=== PATIENT | male | born 1980 | race Hispanic/Latino ===

== ENCOUNTER 2019-12-17 01:06 | Emergency (ER) | payer SELFPAY ==
[2019-12-17] MEDS ORDERED: LIDOCAINE 1% MPF 30 ML VIAL ONE (01:24)
[2019-12-17 02:08] LABS: Absolute Lymphocytes (CBC) 1.8 K/uL (0.7-4.9); Basophils % 1.1 % (0-1.3); Hematocrit 42.1 % (39.6-49.0); Lymphocytes % 20.4 % (15.3-44.8); MPV 7.8 fL (7.6-11.3); RBC Red Blood Cell Count 4.85 M/uL (4.33-5.43)
[2019-12-17 02:21] LABS: Protime INR 0.9
[2019-12-17 02:30] LABS: ALT/SGPT 56 U/L (12-78); Albumin 3.7 g/dL (3.4-5.0); Alkaline Phosphatase 54 U/L (45-117); BUN Blood Urea Nitrogen 10 mg/dL (7-18); Bicarbonate 21 mmol/L (21-32); Bilirubin Direct < 0.1 mg/dL (0-0.2); Bilirubin Total 0.2 mg/dL (0.2-1.0); Glucose Level 85 mg/dL (74-106); Protein, Total 7.3 g/dL (6.4-8.2); Sodium Level 144 mmol/L (136-145)
[2019-12-17 02:32] LABS: AST/SGOT 57 U/L (15-37)
[2019-12-17 02:41] LABS: Barbiturates NEGATIVE (NEGATIVE); Benzodiazepines NEGATIVE (NEGATIVE); Cocaine NEGATIVE (NEGATIVE); METHAMPHETAM NEGATIVE (NEGATIVE); Methadone NEGATIVE (NEGATIVE); Opiates NEGATIVE (NEGATIVE); Phencyclidine NEGATIVE (NEGATIVE); THC Cannibis NEGATIVE (NEGATIVE)
[2019-12-17] MEDS ORDERED: DIPHENHYDRAMINE 50 MG/ML VIAL ONE (03:46)
[2019-12-17] MEDS ORDERED: QUETIAPINE 25 MG TAB ONE (04:44)
--- NOTE | 2019-12-17 07:22 | EDPHYS ---
Physician Documentation [facility] Name: Slava Guevara Age: 39 yrs Sex: Male : 1980 Arrival Date: 12/17/2019 Time: 01:16 Bed 2 Private MD: ED Physician Kermit Gann HPI: 12/16 06:20 This 39 yrs old Male presents to ER via EMS with complaints of Laceration To tw4 Arm. 06:20 The patient has a laceration related to: unknown occurred at home. The laceration(s) tw4 is(are) located on the right arm and left arm. Onset: The symptoms/episode began/occurred today. Pertinent positives: suicidal ideation, The patient has not experienced similar symptoms in the past. Historical: - Allergies: 01:30 No Known Allergies; jb4 - Home Meds: 01:30 None [Active]; jb4 - PMHx: 01:30 None; jb4 - PSHx: 01:30 None; jb4 - Immunization history:: Adult Immunizations unknown. - Social history:: Smoking status: unknown Patient uses alcohol, patient/guardian reports recent binge of alcohol consumption. ROS: 06:20 Constitutional: Negative for fever, chills, and weight loss, Eyes: Negative for injury, tw4 pain, redness, and discharge, Cardiovascular: Negative for chest pain, palpitations, and edema, Respiratory: Negative for shortness of breath, cough, wheezing, and pleuritic chest pain, Abdomen/GI: Negative for abdominal pain, nausea, vomiting, diarrhea, and constipation, MS/Extremity: Negative for injury and deformity. 06:20 Skin: Positive for laceration(s), Negative for abrasions, abscesses, avulsion, cellulitis. Exam: 20:11 Constitutional: This is a well developed, well nourished patient who is awake, alert, tw4 and in no acute distress. Head/Face: Normocephalic, atraumatic. Chest/axilla: Normal chest wall appearance and motion. Nontender with no deformity. No lesions are appreciated. Cardiovascular: Regular rate and rhythm with a normal S1 and S2. No gallops, murmurs, or rubs. Normal PMI, no JVD. No pulse deficits. Respiratory: Lungs have equal breath sounds bilaterally, clear to auscultation and percussion. No rales, rhonchi or wheezes noted. No increased work of breathing, no retractions or nasal flaring. Abdomen/GI: Soft, non-tender, with normal bowel sounds. No distension or tympany. No guarding or rebound. No evidence of tenderness throughout. Neuro: Awake and alert, GCS 15, oriented to person, place, time, and situation. Cranial nerves II-XII grossly intact. Motor strength 5/5 in all extremities. Sensory grossly intact. Cerebellar exam normal. Normal gait. Psych: Awake, alert, with orientation to person, place and time. Behavior, mood, and affect are within normal limits. 20:11 Musculoskeletal/extremity: Extremities: noted in the dorsal aspect of left forearm: laceration, noted in the right wrist: Vital Signs: 01:17 BP 121 / 76; Pulse 141; Resp 16; Temp 99.5; Pulse Ox 94% on R/A; jb4 04:38 BP 105 / 74; Pulse 81; Resp 16; Pulse Ox 97% on R/A; jb4 05:00 BP 95 / 70; Pulse 67; Resp 16; Pulse Ox 96% on R/A; jb4 06:00 BP 97 / 65; Pulse 79; Resp 16; Pulse Ox 96% on R/A; jb4 Laceration: 20:11 Wound Repair of 10.2cm ( 4in ) subcutaneous laceration to dorsal aspect of left tw4 forearm. Distal neuro/vascular/tendon intact. Anesthesia: Local anesthetic administered with 5 mls of 1% lidocaine. Wound prep: Simple cleansing. Skin closed with 8 1-0 Letha using staple gun. Dressed with Kerlix. Patient tolerated well. MDM: 01:19 Patient medically screened. tw4 07:09 ED course: Pt is alert oriented and appears clinically sober. Does not attest to SI at ps1 this time. Statements previous were associated with alcohol intoxication and unreliable. . 20:20 Differential diagnosis: superficial laceration, tendon injury, vascular injury. Data tw4 reviewed: vital signs, nurses notes. Data interpreted: Pulse oximetry: Interpretation: normal. Counseling: I had a detailed discussion with the patient and/or guardian regarding: the historical points, exam findings, and any diagnostic results supporting the discharge/admit diagnosis. 12/16 02:32 Order name: Basic Metabolic Panel; Complete Time: 02:54 EDMS 12/16 02:54 Interpretation: Normal except: CL 111; CA 8.4. 12/16 02:32 Order name: Liver (Hepatic) Function; Complete Time: 02:54 EDMS 12/16 02:54 Interpretation: Normal except: GLOB 3.6; A/G 1.0; AST 57. 12/16 02:32 Order name: Acetaminophen Level; Complete Time: 02:54 EDMS 12/16 02:54 Interpretation: Within normal limits: ACETA < 2.0. 12/16 02:32 Order name: Alcohol Serum/Plasma; Complete Time: 02:54 EDMS 12/16 02:55 Interpretation: Abnormal: ETOH 268. 12/16 02:32 Order name: Salicylates Level; Complete Time: 02:54 EDMS 12/16 02:55 Interpretation: Within normal limits: ALLEGRA < 1.7. 12/16 01:42 Order name: EKG; Complete Time: 02:32 12/16 01:42 Order name: EKG - Nurse/Tech; Complete Time: 01:54 4 12/16 01:42 Order name: IV Saline Lock; Complete Time: 01:54 4 12/16 01:42 Order name: Labs collected and sent; Complete Time: 01:54 4 12/16 01:42 Order name: Urine Dipstick-Ancillary (obtain specimen); Complete Time: 05:28 12/16 02:32 Order name: CBC with Automated Diff; Complete Time: 02:54 EDMS 12/16 02:55 Interpretation: Normal except: MCV 86.7; RDW 16.2. 12/16 02:32 Order name: Protime (+INR); Complete Time: 02:54 EDMS 12/16 02:55 Interpretation: Within normal limits: PT 10.6. 12/16 02:32 Order name: PTT, Activated Partial Thromb; Complete Time: 02:54 EDMS 12/16 02:32 Order name: Urine Drug Screen; Complete Time: 02:54 EDMS Administered Medications: 01:28 Drug: Lidocaine (1 %) 1 amp {Note: administered by provider .} Volume: 20 ml; Route: ea Infiltration; 03:37 Drug: Benadryl 25 mg Route: IVP; Site: right antecubital; jb4 04:00 Follow up: Response: No adverse reaction jb4 04:53 Drug: SEROquel 25 mg Route: PO; ea 05:27 Follow up: Response: No adverse reaction ea Disposition: 12/17/19 07:21 Discharged to Home. Impression: Alcohol abuse with intoxication, Bilateral forearm laceration. - Condition is Stable. - Discharge Instructions: Alcohol Intoxication, Laceration Care, Adult. - Medication Reconciliation Form, Thank You Letter, Antibiotic Education, Prescription Opioid Use form. - Follow up: Private Physician; When: As needed; Reason: Further diagnostic work-up, Recheck today's complaints, Continuance of care, Re-evaluation by your physician, coordinate substance abuse counseling. Follow up: Emergency Department; When: As needed; Reason: If symptoms return, Worsening of condition. - Problem is new. - Symptoms have improved. Signatures: Dispatcher [employer] EDMS Lynn Palma RN RN ss Bryson, James, RN RN jb4 Jadyn Tejada RN RN ea Singer, Phillip, MD MD ps1 Wadley, Terrence, MD MD tw4 Corrections: (The following items were deleted from the chart) 01:41 01:19 12/17/2019 01:19 Discharged to Home. Impression: Laceration of flexor muscle, tw4 fascia and tendon of other and unspecified finger at forearm level. Condition is Stable. Forms are Medication Reconciliation Form, Thank You Letter, Antibiotic Education, Prescription Opioid Use. Follow up: Private Physician; When: Upon discharge from the Emergency Department; Reason: Recheck today's complaints, Continuance of care, Re-evaluation by your physician. Problem is new. Symptoms have improved. tw4 02:48 02:32 CBC+H.LAB.BRZ ordered. EDMS EDMS 02:48 02:32 PROTIME (+INR)+COAG.LAB.BRZ ordered. EDMS EDMS 02:48 02:32 PTT, ACTIVATED+COAG.LAB.BRZ ordered. EDMS EDMS 02:48 02:32 SALICYLATE+C.LAB.BRZ ordered. EDMS EDMS 02:48 02:32 URINE DRUG SCREEN+CHEM UR.LAB.BRZ ordered. EDMS EDMS 02:49 02:32 ACETAMINOPHEN+C.LAB.BRZ ordered. EDMS EDMS 02:49 02:32 BASIC METABOLIC PANEL+C.LAB.BRZ ordered. EDMS EDMS 02:49 02:32 ETHANOL+C.LAB.BRZ ordered. EDMS EDMS 02:49 02:32 HEPATIC FUNCTION+C.LAB.BRZ ordered. EDCA EDMS 11:14 07:21 12/17/2019 07:21 Discharged to Home. Impression: Alcohol abuse with intoxication; ss Bilateral forearm laceration. Condition is Stable. Prescriptions for Ibuprofen 800 mg Oral Tablet - take 1 tablet by ORAL route every 12 hours As needed take with food; 20 tablet. and Forms are Medication Reconciliation Form, Thank You Letter, Antibiotic Education, Prescription Opioid Use. Follow up: Private Physician; When: As needed; Reason: Further diagnostic work-up, Recheck today's complaints, Continuance of care, Re-evaluation by your physician, coordinate substance abuse counseling. Follow up: Emergency Department; When: As needed; Reason: If symptoms return, Worsening of condition. Problem is new. Symptoms have improved. ps1
--- NOTE | 2019-12-17 07:22 | ER ---
Nurse's Notes [facility] Name: Slava Guevara Age: 39 yrs Sex: Male : 1980 Arrival Date: 12/17/2019 Time: 01:16 Bed 2 Private MD: Diagnosis: Alcohol abuse with intoxication;Bilateral forearm laceration Presentation: 12/16 01:17 Chief complaint: EMS states: Per the pt, he was cooking and accidently cut both of his jb4 forearms with a knife. He also has a laceration to his left upper arm. Coronavirus screen: Client denies travel out of the [place] in the last 14 days. At this time, the client does not indicate any symptoms associated with coronavirus-19. Ebola Screen: No symptoms or risks identified at this time. Complicating Factors: There are no complicating factors for this patient. Initial Sepsis Screen: Does the patient meet any 2 criteria? HR > 90 bpm. Yes Does the patient have a suspected source of infection? No. Patient's initial sepsis screen is negative. Risk Assessment: Do you want to hurt yourself or someone else? Patient reports no desire to harm self or others. Onset of symptoms was December 17, 2019. Transition of care: patient was not received from another setting of care. 01:17 Method Of Arrival: [facility] 01:17 Acuity: TESSA 2 jb4 Triage Assessment: 01:32 General: Appears in no apparent distress. Behavior is appropriate for age, Smells of ea alcohol. Pain: Complains of pain in dorsal aspect of left forearm. Injury Description: Laceration sustained to right wrist and dorsal aspect of left forearm is 2.6 to 7.5 cm long, was sustained 30-60 minutes ago. is bleeding a small amount. Historical: - Allergies: 01:30 No Known Allergies; jb4 - Home Meds: 01:30 None [Active]; jb4 - PMHx: 01:30 None; jb4 - PSHx: 01:30 None; jb4 - Immunization history:: Adult Immunizations unknown. - Social history:: Smoking status: unknown Patient uses alcohol, patient/guardian reports recent binge of alcohol consumption. Screenin:29 Abuse screen: Denies threats or abuse. Nutritional screening: No deficits noted. ea Tuberculosis screening: No symptoms or risk factors identified. Fall Risk None identified. Assessment: 01:17 General: Appears in no apparent distress. comfortable, Behavior is calm, cooperative, jb4 appropriate for age. Pain: Denies pain. Neuro: Level of Consciousness is awake, alert, obeys commands, Oriented to person, place, time, situation. Cardiovascular: Patient's skin is warm and dry. Respiratory: Airway is patent Respiratory effort is even, unlabored, Respiratory pattern is regular, symmetrical. GI: No signs and/or symptoms were reported involving the gastrointestinal system. : No signs and/or symptoms were reported regarding the genitourinary system. EENT: No signs and/or symptoms were reported regarding the EENT system. Derm: Skin is pink, warm \T\ dry. Musculoskeletal: Circulation, motion, and sensation intact. Range of motion: intact in all extremities. Injury Description: Laceration sustained to dorsal aspect of right forearm is clean, 7.6 to 20 cm long, not bleeding. 01:17 Injury Description: Laceration sustained to dorsal aspect of left forearm is clean, 7.6 jb4 to 20 cm long, not bleeding. Injury Description: Laceration sustained to anterior aspect of left shoulder is clean, superficial, 7.6 to 20 cm long, not bleeding. 02:18 Reassessment: PD at bedside reports they have obtained an ROSS. Provider notified. ortiz 02:37 Reassessment: Patient appears in no apparent distress at this time. Patient and/or jb4 family updated on plan of care and expected duration. Pain level reassessed. Patient is alert, oriented x 3, equal unlabored respirations, skin warm/dry/pink. 03:11 Reassessment: Patient appears in no apparent distress at this time. Patient and/or jb4 family updated on plan of care and expected duration. Pain level reassessed. Patient is alert, oriented x 3, equal unlabored respirations, skin warm/dry/pink. Law enforcement remains at the bedside. 04:38 Reassessment: Patient appears in no apparent distress at this time. Patient and/or jb4 family updated on plan of care and expected duration. Pain level reassessed. Patient is alert, oriented x 3, equal unlabored respirations, skin warm/dry/pink. 05:31 Reassessment: PT is resting in bed with eyes closed, respirations are even and jb4 unlabored with no s/s of pain or distress noted. [place] [employer] officer remains at the bedside. 06:03 Reassessment: Patient and/or family updated on plan of care and expected duration. Pain ea level reassessed. Pt resting with eyes closed, respirations even and unlabored. Chest expansion even and symmetrical, PD at bedside. 06:15 Reassessment: Law enforcement no longer at the bedside. jb4 07:18 Reassessment: Patient appears in no apparent distress at this time. Patient and/or ph family updated on plan of care and expected duration. Pain level reassessed. Patient is alert, oriented x 3, equal unlabored respirations, skin warm/dry/pink. Dr Gann at bedside to speak w/ pt, pt to be d/c home w/ , awaiting 's arrival. Vital Signs: 01:17 BP 121 / 76; Pulse 141; Resp 16; Temp 99.5; Pulse Ox 94% on R/A; jb4 04:38 BP 105 / 74; Pulse 81; Resp 16; Pulse Ox 97% on R/A; jb4 05:00 BP 95 / 70; Pulse 67; Resp 16; Pulse Ox 96% on R/A; jb4 06:00 BP 97 / 65; Pulse 79; Resp 16; Pulse Ox 96% on R/A; jb4 ED Course: 01:16 Patient arrived in ED. ag3 01:17 Mick Lopez, RN is Primary Nurse. jb4 01:19 Kahlil Pacheco MD is Attending Physician. tw4 01:25 Assist provider with laceration repair on dorsal aspect of right forearm and dorsal jb4 aspect of left forearm that was between 7.6 to 12.5 cm using page. Set up tray. Performed by Kahlil Pacheco MD Dressed with Neosporin, Patient tolerated well. 01:30 Triage completed. jb4 01:30 Arm band placed on right wrist. jb4 01:31 Patient has correct armband on for positive identification. Bed in low position. Call ea light in reach. 01:55 Inserted saline lock: 20 gauge in right antecubital area, using aseptic technique. ea Blood collected. 07:09 Attending Physician role handed off by Kahlil Pacheco MD ps1 07:09 Kermit Gann MD is Attending Physician. ps1 11:13 IV discontinued, intact, bleeding controlled, No redness/swelling at site. Pressure ss dressing applied. Administered Medications: 01:28 Drug: Lidocaine (1 %) 1 amp {Note: administered by provider .} Volume: 20 ml; Route: ea Infiltration; 03:37 Drug: Benadryl 25 mg Route: IVP; Site: right antecubital; [facility] 04:00 Follow up: Response: No adverse reaction jb4 04:53 Drug: SEROquel 25 mg Route: PO; ea 05:27 Follow up: Response: No adverse reaction ea Outcome: 01:19 Discharge ordered by . tw4 07:21 Discharge ordered by MD. ps1 11:13 Discharged to home ambulatory, VIA [facility]. OK per Dr. Gann ss 11:13 Condition: good 11:13 Discharge instructions given to patient, Instructed on discharge instructions, follow up and referral plans. wound care, Demonstrated understanding of instructions, follow-up care, wound care. 11:14 Patient left the ED. ss Signatures: Lynn Palma RN RN Saloni Bowman RN RN ph Bryson, James, RN RN jb4 Antunez, Elena, RN RN ea Singer, Phillip, MD MD [facility] Kahlil Pacheco MD MD tw4 Lidia Ledesma ag3 Corrections: (The following items were deleted from the chart) 03:10 01:17 Acuity: TESSA 3 jb4 [facility] 05:37 02:00 Reassessment: PD at bedside reports they have obtained an ROSS. Provider notified. ortiz alcantar 07:20 07:18 Reassessment: Patient appears in no apparent distress at this time. Patient ph and/or family updated on plan of care and expected duration. Pain level reassessed. Patient is alert, oriented x 3, equal unlabored respirations, skin warm/dry/pink. Pt to be d/c home w/ , awaiting 's arrival ph
[2019-12-17 11:22] VITALS: TEMP 99.5
[2019-12-17 11:25] VITALS: O2SAT 96
[2019-12-17 11:26] VITALS: BP 97/65
--- NOTE | 2019-12-18 07:44 | EKG ---
Test Date: 2019-12-17 Test Time: 01:49:21 Soldering Machine Operator: THALIA MEASUREMENT RESULTS: Intervals: Rate: 124 CA: 132 QRSD: 86 QT: 316 QTc: 453 [place]: P: 50 CA: 132 QRS: 3 T: 23 INTERPRETIVE STATEMENTS: Sinus tachycardia Possible Anterior infarct, age undetermined Abnormal ECG No previous ECG available for comparison Electronically Signed On 12-18-19 07:43:00 CDT by Saul Rico
== END 2019-12-17 11:14 | disposition home or self-care (01) ==
LOC: ER 01:06
PROC: 0JQH0ZZ Repair Left Lower Arm Subcutaneous Tissue and Fascia, Open Approach (ICD-10-PCS; principal; 2019-12-17)
PROC: 0JQG0ZZ Repair Right Lower Arm Subcutaneous Tissue and Fascia, Open Approach (ICD-10-PCS; 2019-12-17)
DX: F10.129 Alcohol abuse with intoxication, unspecified (principal); S51.812A Laceration without foreign body of left forearm, initial encounter; S51.811A Laceration without foreign body of right forearm, initial encounter; W26.0XXA Contact with knife, initial encounter; Y93.G3 Activity, cooking and baking; Y92.009 Unspecified place in unspecified non-institutional (private) residence as the place of occurrence of the external cause
CPT/HCPCS: 36415; 80048; 80076; 80307; 80320; 80329; 85025; 85610; 85730; 93005; 96374; 99284; J1200